=== PATIENT | male | born 1965 | race Caucasian/White ===

== ENCOUNTER 2023-05-17 13:41 | Emergency (ER) | payer OTHER, BC ==
[2023-05-17 13:56] LABS: BASOPHILS 1.2 % (0-2); EOSINOPHILS 2.7 % (0-6); HEMATOCRIT 42.2 % (35.0-50.0); HEMOGLOBIN 13.7 g/dL (12.0-18.0); MCH 27.5 (27-36); MCHC 32.5 g/dl (30-36); MCV 84.7 fl (81-99); MONOCYTES 3.6 % (0-12); NEUTROPHILS 74.5 % (39-80); PLATELET COUNT 393 K/uL (140-440); RBC 4.98 M/ul (4.3-5.7); RDW 14.6 (10.5-15.0)
[2023-05-17 14:17] LABS: ALBUMIN 3.5 g/dL (3.4-5.0); ALBUMIN/GLOBULIN RATIO 0.85 (1.1-2.4); ALCOHOL, MEDICAL <3 ng/dL (<3); ALKALINE PHOSPHATASE 91 U/L (46-116); ALT (SGPT) 20 U/L (14-59); ANION GAP 15.6 (7-21); AST (SGOT) 17 U/L (15-37); BILIRUBIN, TOTAL 0.8 ng/dL (0.2-1.0); CARBON DIOXIDE 24 mmol/L (21-32); CHLORIDE 101 mmol/L (98-107); CREATININE, SERUM 0.88 mg/dL (0.70-1.30); GLOMERULAR FILTRATION RATE,EST 99 mL/min (>60); POTASSIUM 3.6 mmol/L (3.5-5.1); PROTEIN, TOTAL 7.6 g/dL (6.4-8.2); UREA NITROGEN 11 mg/dL (7-18)
[2023-05-17 16:53] VITALS: BP 123/79
== END 2023-05-17 16:49 | disposition short-term general hospital (02) ==
LOC: ED 13:41
PROVIDERS: Emergency Medicine
DX: S06.5XAA Traumatic subdural hemorrhage with loss of consciousness status unknown, initial encounter (principal); S01.01XA Laceration without foreign body of scalp, initial encounter; V49.9XXA Car occupant (driver) (passenger) injured in unspecified traffic accident, initial encounter; Z20.822 Contact with and (suspected) exposure to COVID-19
CPT/HCPCS: 12004; 36415; 70450; 72125; 73030; 80053; 85025; 99285-25; C9803; G0480; J7030; U0002